=== PATIENT | female | born 1945 | race Caucasian/White ===

== ENCOUNTER 2020-09-25 12:26 | Inpatient (IN) | payer MEDICARE, OTHER ==
[2020-09-25 13:47] LABS: BASOPHIL 0.3 % (0-2); EOSINOPHIL 0 % (0-7); HCT 37.7 % (37.0-47.0); HGB 12.9 g/dl (12.5-16.0); LYMPHOCYTE 4.4 % (15-48); MCH 29.7 pg (25.0-31.0); MCHC 34.2 g/dL (32.0-36.0); MCV 86.9 fL (78.0-100.0); MONOCYTE 4.8 % (0-12); MPV 11.3 fL (6.0-9.5); NRBC 0; PLT 148 K/uL (150-400); RBC 4.34 M/uL (4.20-5.40); RDW 13.1 % (11.5-14.0); WBC 15.5 K/uL (4.0-10.5)
[2020-09-25 13:48] LABS: NEUTROPHIL 90.1 % (41-80)
[2020-09-25 14:05] LABS: ALBUMIN 3.1 g/dL (3.4-5.0); BILIRUBIN - TOTAL 0.8 mg/dL (0.2-1.0); BUN/CREAT RATIO (CALC) 19.3 RATIO; CREATININE 1.35 mg/dL (0.51-0.95); GLOBULIN (CALCULATION) 4.1 g/dL; POTASSIUM 3.6 mmol/L (3.5-5.1); TOTAL PROTEIN 7.2 g/dL (6.4-8.2)
[2020-09-25 15:03] LABS: BILIRUBIN NEGATIVE (NEGATIVE); BLOOD 3+ Ery/uL (NEGATIVE); CLARITY CLEAR (CLEAR); COLOR YELLOW (YELLOW); GLUCOSE (U) NORMAL (NORMAL); LEUKOCYTES 2+ Leu/uL (NEGATIVE); NITRITE POSITIVE (NEGATIVE); PROTEIN 2+ mg/dL (NEGATIVE); SPECIFIC GRAVITY 1.015 (1.001-1.030); pH 6.5 (5.0-9.0)
[2020-09-25 15:08] LABS: BACTERIA 1+
[2020-09-25 16:21] LABS: LACTIC ACID 2.2 mmol/L (0.4-1.9)
[2020-09-25 17:57] LABS: CORONAVIRUS 2019 SARS-COV-2 NEGATIVE (NEGATIVE); INFLUENZA A NAA NEGATIVE (NEGATIVE)
[2020-09-25] MEDS ORDERED: FOSAMAX70 MG PO (21:46)
[2020-09-25] MEDS ORDERED: FLONASE ALLER15.8 ML (21:47)
[2020-09-25] MEDS ORDERED: TRELEGY ELLIPT1 EACH INH (21:49)
[2020-09-25] MEDS ORDERED: NORVASC5 MG PO (21:50)
[2020-09-25] MEDS ORDERED: VITAMIN D310 MC1 PO (21:50)
[2020-09-25] MEDS ORDERED: SINGULAIR10 MG PO (21:51)
[2020-09-25] MEDS ORDERED: MYSOLINE50 MG PO (21:51)
[2020-09-25] MEDS ORDERED: THEOPHYLLINE400 MG PO (21:52)
[2020-09-25] MEDS ORDERED: TRAZODONE 100M100 MG PO (21:55)
[2020-09-25] MEDS ORDERED: POTASSIUM BICARB1 GM PO (21:56)
[2020-09-25] MEDS ORDERED: PROBIOTIC1 EAC1 PO (21:58)
[2020-09-25] MEDS ORDERED: MAG-OXIDE 400M400 MG PO (21:58)
[2020-09-25] MEDS ORDERED: COZAAR100 MG PO (21:58)
--- NOTE | 2020-09-25 22:01 | NUR ---
1914 REPORT RECEIVED FROM Mitali FONTANEZ RN. CARE ASSUMED.
[2020-09-26 05:43] LABS: BASOPHIL 0.1 % (0-2); EOSINOPHIL 0 % (0-7); HCT 36.9 % (37.0-47.0); HGB 12.7 g/dl (12.5-16.0); LYMPHOCYTE 2.9 % (15-48); MCH 29.7 pg (25.0-31.0); MCHC 34.4 g/dL (32.0-36.0); MCV 86.2 fL (78.0-100.0); MONOCYTE 2.6 % (0-12); MPV 11.6 fL (6.0-9.5); NRBC 0; PLT 130 K/uL (150-400); RBC 4.28 M/uL (4.20-5.40); RDW 12.9 % (11.5-14.0); WBC 11.4 K/uL (4.0-10.5)
[2020-09-26 05:44] LABS: NEUTROPHIL 93.6 % (41-80)
[2020-09-26 06:09] LABS: BUN/CREAT RATIO (CALC) 20.4 RATIO; CREATININE 0.93 mg/dL (0.51-0.95); POTASSIUM 3.3 mmol/L (3.5-5.1)
[2020-09-27 08:13] LABS: BASOPHIL 0.1 % (0-2); EOSINOPHIL 0 % (0-7); HCT 32.6 % (37.0-47.0); HGB 11.2 g/dl (12.5-16.0); LYMPHOCYTE 7.2 % (15-48); MCH 29.4 pg (25.0-31.0); MCHC 34.4 g/dL (32.0-36.0); MCV 85.6 fL (78.0-100.0); MONOCYTE 5.5 % (0-12); MPV 11.6 fL (6.0-9.5); NEUTROPHIL 86.7 % (41-80); NRBC 0; PLT 143 K/uL (150-400); RBC 3.81 M/uL (4.20-5.40); RDW 13.1 % (11.5-14.0); WBC 11.8 K/uL (4.0-10.5)
[2020-09-27 08:31] LABS: BUN/CREAT RATIO (CALC) 17.2 RATIO; CREATININE 0.93 mg/dL (0.51-0.95); POTASSIUM 4.4 mmol/L (3.5-5.1)
[2020-09-27 09:39] LABS: PRO-BNP 2148 pg/mL (<450)
--- NOTE | 2020-09-27 14:34 | NUR ---
09/27/20 Ms. Espinoza lives alone. She has 2 daughters; on lives in [place] and the other in [place]. Ms. Espinoza was independent in the home and community prior to admission. She has an 02 concentrator at home which she no longer uses. - [facility] referral [facility] made to [facility] per patient choice. Patient was educated to the affliation. - Will monitor for 02 needs.
[2020-09-28 05:58] LABS: BASOPHIL 0.2 % (0-2); EOSINOPHIL 0 % (0-7); HCT 32.1 % (37.0-47.0); LYMPHOCYTE 4.4 % (15-48); MCH 29.4 pg (25.0-31.0); MCHC 34.3 g/dL (32.0-36.0); MCV 85.8 fL (78.0-100.0); MONOCYTE 6.5 % (0-12); MPV 12.3 fL (6.0-9.5); NEUTROPHIL 87.7 % (41-80); NRBC 0; PLT 137 K/uL (150-400); RBC 3.74 M/uL (4.20-5.40); RDW 13.4 % (11.5-14.0); WBC 6.6 K/uL (4.0-10.5)
[2020-09-28 06:25] LABS: BUN/CREAT RATIO (CALC) 15.9 RATIO; CREATININE 0.88 mg/dL (0.51-0.95); POTASSIUM 3.9 mmol/L (3.5-5.1)
--- NOTE | 2020-09-28 18:42 | NUR ---
RNPT WENT INTO [facility], NOTIFIED, EKG WAS ORDERED STAT AND NEW ORDER OF LOPRESSOR 5ML Q5M WAS ORDERED. AFTER TWO DOSES OF LOPRESSOR IVP, PT BP 88/45 HR 103
--- NOTE | 2020-09-28 19:11 | NUR ---
NOTIFIED OF PT BP 102/62 MAP 75 HR 110'S, STATED TO HOLD LOPRESSOR AND OK TO START AMIO BOLUS.
--- NOTE | 2020-09-28 19:26 | NUR ---
IV WAS LEAKING RN NOTICED AFTER AMIO BOLUS INFUSED. NOTIFIED MD AND HE STATED TO MONITOR SITE FOR REDNESS. ARM WAS NOT RED AT THIS TIME.
[2020-09-30 06:29] LABS: BASOPHIL 0.3 % (0-2); EOSINOPHIL 0.1 % (0-7); HCT 31.7 % (37.0-47.0); HGB 10.8 g/dl (12.5-16.0); LYMPHOCYTE 9.3 % (15-48); MCHC 34.1 g/dL (32.0-36.0); MONOCYTE 8.3 % (0-12); MPV 11.2 fL (6.0-9.5); NEUTROPHIL 79.5 % (41-80); NRBC 0; PLT 193 K/uL (150-400); RBC 3.73 M/uL (4.20-5.40); RDW 13.6 % (11.5-14.0); WBC 7.6 K/uL (4.0-10.5)
[2020-09-30 07:21] LABS: CREATININE 0.93 mg/dL (0.51-0.95); POTASSIUM 3.1 mmol/L (3.5-5.1)
--- NOTE | 2020-09-30 10:11 | NUR ---
09/30 Discharge is anticipated for 10/02. 02 has been ordered from [facility]. Please call [facility] at [phone] when patient is discharged.
[2020-09-30] MEDS ORDERED: LOPRESSOR25 MG PO (15:48)
[2020-09-30] MEDS ORDERED: AMIODARONE HCL200 MG PO (15:48)
[2020-09-30] MEDS ORDERED: COZAAR50 MG PO (15:48)
[2020-09-30] MEDS ORDERED: ELIQUIS2.5 MG PO (15:48)
[2020-09-30] MEDS ORDERED: PREDNISONE 20MG20 MG PO (15:48)
[2020-09-30] MEDS ORDERED: CEFDINIR300 MG PO (15:49)
[2020-09-30] MEDS ORDERED: AZITHROMYCIN250 MG PO (15:49)
[2020-09-30] MEDS ORDERED: DUONEB 2.5-0.5M1 AMP INH (15:49)
--- NOTE | 2020-09-30 21:50 | NUR ---
PTs 2 IVs WENT BAD. OCCUPATIONAL THERAPY ASSIST NOTIFIED AND SHE CONFIRMED WE DID NOT HAVE TO RE START ONE SINCE SHE WILL BE GOING HOME SOON. ANTIBIOTICS WILL BE PO
--- NOTE | 2020-10-01 14:45 | NUR ---
DISCHARGE ORDERS RECEIVED. PT AND PT DAUGHTER VERBALIZED UNDERSTANDIG OF ALL DISCHARGE ORDERS AND MEDICATIONS. PT SENT HOME WITH OXYGEN FROM [facility]. [facility] HAS BEEN NOTIFIED OF PT DISCHARGE. ALL DISCHARGE PAPERWORK SENT HOME WITH PT
--- NOTE | 2020-10-01 19:05 | NUR ---
PER RN, FAMILY HAS BEEN CALLING [facility] WITH CONCERNS ABOUT TAKING CARE OF THE PATIENT AFTER DISCHARGE. OBTAINED NUMBER TO DAUGHTER (MARYANNE), REVIEWED THE CHART, AND SPOKE WITH STAFF THAT CARED FOR THE PATIENT. PLACED CALL TO ABOVE DAUGHTER. SHE AND HER FAMILY ARE VERY CONCERNED FOR THE SAFETY OF THEIR MOTHER. SHE STATES THAT THE PATIENT IS VERY WEAK AND IS UNABLE TO BE HOME ALONE AND SHE DOESN'T UNDERSTAND WHY THE PATIENT WAS DISCHARGED. SHE HAS DISCUSSED HER CONCERNS WITH FAMILY MEMBERS THAT ARE HEALTHCARE PROVIDERS AND STATES THAT THEY HAVE THE SAME CONCERNS AND THEY ALL FEEL THAT THE PATIENT WAS NOT TREATED APPROPRIATELY WHILE AT THE HOSPITAL. THEY ALSO FEEL THAT DISCHARGE PLANNING WAS LACKING. THE DAUGHTER STATED THAT THE PATIENT NEEDS A WALKER AND SHE DOES NOT HAVE ONE. REVIEW OF CASE MANAGEMENT/SOCIAL WORK NOTES STATED THAT THE PATIENT WAS INDEPENDENT AT HOME PRIOR TO DISCHARGE. THIS WAS CONFIRMED BY THE DAUGHTER. THERE WAS NO MENTION OF NEEDING A WALKER. PER THE PRIMARY RN, PT AND OT DID NOT MENTION ANY CONCERNS WITH THE PATIENT'S MOBILITY TODAY AND THE PRIMARY RN REPORTED THAT THE PATIENT WAS ONLY A STANDBY ASSIST TO MANAGE THE OXYGEN TUBING. THE FAMILY IS UPSET THAT THE PATIENT HAS A LARGE OXYGEN TANK THAT HAS TO BE MANAGED WHILE AMBULATING. SHE STATED OVER AND OVER HOW SHE AND HER FAMILY ARE "NOT QUALIFIED" AND "HAVE JOBS TO GO TO". INFORMED THE DAUGHTER THAT SHE COULD BRING THE PATIENT BACK TO THE ER, BUT THAT THIS WOULD NOT GUARANTEE A RE-ADMISSION. SHE STATED THAT THEY WERE ABLE TO STAY WITH THE PATIENT TONIGHT. DISCUSSED HAVING A FAMILY MEMBER EXPLORE FMLA FOR THEIR JOB TO CARE FOR HER AND TO SPEAK WITH NEIGHBORS THAT MAY HAVE A GOOD RELATIONSHIP WITH THE PATIENT WHO MIGHT ASSIST. SHE WAS ALSO CONCERNED ABOUT HOME HEALTH NOT SEEING THE PATIENT UNTIL SATURDAY. SHE STATED THAT THEY DID NOT GET THE ORDER IN TIME. THE PRIMARY RN STATED THAT THIS WAS NOT THE CASE AND THAT [facility] WAS AWARE OF THE PATIENT. THE DAUGHTER WAS ALSO UPSET THAT THE PATIENT DID NOT GET A BATH TODAY PRIOR TO DISCHARGE. SHE WAS UNABLE TO REPORT IF THE PATIENT HADN'T BEEN GETTING BATHS DURING HER STAY OR IF SHE REFUSED A BATH TODAY. INFORMED THE DAUGHTER THAT HER CONCERNS WOULD BE DISCUSSED WITH CASE MANAGEMENT TOMORROW AND OTHERS WHO MAY BE ABLE TO ASSIST WITH POSSIBLE NEEDS FOR THE PATIENT. SHE WAS APPRECIATIVE OF THIS. INFORMED HER THAT SHE WOULD GET A CALL FROM THIS [employer] TOMORROW WITH AN UPDATE ONCE RESPONSES FROM OTHERS WERE RECEIVED. AT THE END OF THE CALL SHE WAS MORE COMFORTABLE WITH THE SITUATION, BUT DOES EXPECT MORE ASSISTANCE TO GET THE PATIENT INTO REHAB.
--- NOTE | 2020-10-02 11:04 | NUR ---
REVIEWED PT/OT NOTES ON PATIENT'S CHART. ALSO SPOKE WITH DR. VALENTINE ABOUT THE STATUS OF THE PATIENT'S MOBILITY. PT/OT NOTES ALIGNED WITH THE PRIMARY RNs ASSESSMENT OF THE PATIENT'S MOBILITY AND THE ONLY RECOMMENDATION WAS THE OUTPATIENT PT/OT WITH HOME HEALTH. DR. VALENTINE REPORTED THAT ONE OF THE PATIENT'S DAUGHTERS WAS PRESENT SEVERAL TIMES DURING THE PATIENT'S ADMISSION TO DISCUSS HER CARE POST DISCHARGE WITH HIM. HE STATED THAT HE WAS GIVEN THE IMPRESSION THAT THE PATIENT HAD ASSISTANCE FROM FAMILY AT HOME AND WOULD BE APPROPRIATE FOR PT/OT WITH HOME HEALTH VERSUS PLACEMENT IN A REHAB FACILITY. CALLED MARYANNE. SHE PLACED HER AND THE PATIENT'S OTHER DAUGHTER ON THE PHONE. INFORMED ALL OF THE ABOVE. THE DAUGHTER THAT WAS PRESENT DURING THE ADMISSION FOR DISCUSSIONS DID AGREE THAT SHE AND DR. VALENTINE DISCUSSED HOME HEALTH AND THIS DAUGHTER DID SAY THAT THE PATIENT HAS ASSISTANCE AT HOME. SHE ALSO STATED THAT SHE WAS PROMISED A WALKER WOULD BE PROVIDED FOR THE PATIENT, BUT THERE IS NOTHING IN THE CHART THAT SUPPORTS THIS. AT THE END OF THE PATIENT'S DISCHARGE THE DAUGHTER WHO IS THE PRIMARY CAREGIVER HAS BECOME ILL AND IS PLANNING TO GO TO HER LOCAL ER FOR EVALUATION. ENCOURAGED THE FAMILY TO HAVE DISCUSSIONS ABOUT BACK UP PLANS WHEN THE PRIMARY PRODUCT MANAGER MEDICAL DEVICE IS UNABLE TO CARE FOR THE PATIENT, EXPLORE FMLA OPTIONS TO ASSIST WITH LEAVE FROM THEIR JOBS, AND TO REQUEST A SOCIAL SERVICE CONSULT WITH THE HOME HEALTH GROUP TO ASSIST IN EVALUATING AND PLACING THE PATIENT INTO REHAB. ALL FAMILY MEMBERS WERE AGREEABLE TO THIS PLAN AND APPRECIATED THE INFORMATION.
--- NOTE | 2020-10-03 15:37 | NUR ---
10/03/20 Patient information was faxed to [facility] for review.
== END 2020-10-01 14:55 | disposition home health service (06) | DRG 871 ==
LOC: FER 12:26 → FTCU 17:13 → FMS 17:13 → FTCU 21:00
PROVIDERS: Allergy & Immunology Allergy; Emergency Medicine; Nurse Practitioner; ADMIT Internal Medicine
DX: A41.9 Sepsis, unspecified organism (principal); J18.9 Pneumonia, unspecified organism; J96.01 Acute respiratory failure with hypoxia; N39.0 Urinary tract infection, site not specified; N17.9 Acute kidney failure, unspecified; J90 Pleural effusion, not elsewhere classified; J81.1 Chronic pulmonary edema; R65.20 Severe sepsis without septic shock; Z20.822 Contact with and (suspected) exposure to COVID-19; E86.0 Dehydration; J43.9 Emphysema, unspecified; I48.0 Paroxysmal atrial fibrillation; I10 Essential (primary) hypertension; F41.9 Anxiety disorder, unspecified; J43.2 Centrilobular emphysema; I08.1 Rheumatic disorders of both mitral and tricuspid valves; M19.90 Unspecified osteoarthritis, unspecified site; Z88.0 Allergy status to penicillin; Z88.2 Allergy status to sulfonamides; Z88.5 Allergy status to narcotic agent; Z91.040 Latex allergy status; Z91.041 Radiographic dye allergy status; Z90.710 Acquired absence of both cervix and uterus; Z87.891 Personal history of nicotine dependence; Z98.890 Other specified postprocedural states; Z79.52 Long term (current) use of systemic steroids; Z79.899 Other long term (current) drug therapy
CPT/HCPCS: 36415; 36600; 71045; 71275; 80048; 80053; 80198; 81001; 82803; 83036; 83605; 83880; 84145; 84484; 85025; 85379; 87040; 87088; 93005; 94010; 94640; 94664; 94667; 94668; 94762; 97110; 97162; 97166; 97530; 97530-GP; 97535; G0378; J0282; J0456; J0692; J0696; J1644; J1940; J2930; J7030; J7050; J7060; J7120; J7512; Q9967; U0002